=== PATIENT | female | born 2000 | race African-American/Black ===

== ENCOUNTER 2022-01-02 12:59 | Emergency (ER) | payer OTHER, MEDICAID ==
[~2022-01-02] VITALS: Ht 157.5 cm; Wt 102.0 kg
[2022-01-02 13:16] VITALS: BP 150/80
[2022-01-02] MEDS ORDERED: TETRACAINE 0.5% OPHTH DROPS 4ML LEFTEYE ONE (13:45)
[2022-01-02] MEDS ORDERED: BALANCED SALT IRRIG SOLN 15ML IR ONE (13:45)
[2022-01-02] MEDS ORDERED: FLUORESCEIN SODIUM 1MG/STRIP LEFTEYE ONE (13:45)
[2022-01-02] MEDS ORDERED: ACETAMINOPHEN 325MG TABLET PO STA (13:48)
[2022-01-02 14:33] LABS: BASOPHILS % 0.6 % (0.0-2.0); EOSINOPHILS % 0.7 % (0.0-5.0); HEMATOCRIT. 40.2 % (36.0-48.0); HEMOGLOBIN. 13.5 g/dL (12.0-16.0); LYMPHOCYTES % 30.1 % (20.0-50.0); MEAN CORPUSCULAR HEMOGLOBIN 27.8 pg (28.0-32.0); MEAN CORPUSCULAR VOLUME 82.9 fL (81.0-99.0); MONOCYTES % 4.9 % (2.0-8.0); NEUTROPHILS % 63.7 % (40.0-76.0); PLATELET 330 x1000/uL (130-400); RED BLOOD CELL COUNT 4.85 mill/uL (4.2-5.4); RED CELL DISTRIBUTION WIDTH 12.8 % (11.6-14.6)
[2022-01-02 14:49] LABS: CHLORIDE 106 mEq/L (98-107)
[2022-01-02 14:54] LABS: C REACTIVE PROTEIN QUANT 8.7 mg/L (0.0-3.0)
[2022-01-02] MEDS ORDERED: ACET250T3 PO (16:38)
== END 2022-01-02 17:00 | disposition home or self-care (01) ==
LOC: ER 13:31
DX: R51.9 Headache, unspecified (principal)
CPT/HCPCS: 36415; 70486; 80053; 85025; 86140; 99284